=== PATIENT | female | born 1985 | race Caucasian/White ===

== ENCOUNTER 2020-07-24 11:42 | Outpatient (CLI) | payer BC ==
[~2020-07-24] VITALS: Ht 162.6 cm; Wt 71.8 kg
[2020-07-24 12:15] VITALS: BP 125/80; PULSE 77; TEMP 97.9
[2020-07-24] MEDS ORDERED: PRENATAL TABLET PO (12:23)
[2020-07-24] MEDS ORDERED: CALCIUM CARBON650 M2 (12:24)
[2020-07-24 12:32] LABS: BASO % 0.3 % (0.0-2.0); EOS % 0.3 % (0-4.0); GRAN # 8.4 (1.4-6.5); GRAN % 74.9 % (42.2-75.2); HEMATOCRIT 34.7 % (37.0-47.0); HEMOGLOBIN 11.5 g/dl (12.5-16.0); LYMPH % 17.9 % (20.0-51.0); MEAN CELL VOLUME 90 fl (80.0-100.0); MEAN CORPUSCULAR HEMOGLOBIN 30 pg (27.0-31.0); MEAN CORPUSCULAR HGB CONC 33 g/dl (33.0-37.0); MEAN PLATELET VOLUME 12.2 fl (7.4-10.4); MONO # 0.7 (0.1-0.6); MONO % 6.2 % (1.7-9.3); PLATELET COUNT 194 K/mm3 (130-400); RED BLOOD COUNT 3.86 M/mm3 (4.10-5.30); REDCELL DISTRIBUTION WIDTH-CV 12.3 % (11.5-14.5)
--- NOTE | 2020-07-24 13:00 | NUR ---
DR GARCIA IN TO VERIFY POSITION WITH ULTRASOUND. BABY IS IN VERTEX POSITION
--- NOTE | 2020-07-24 13:24 | NUR ---
PT ADMITTED TO LABOR AND DELIVERY WITH REPORTS SHE THINKS HER WATER BROKE AT 0630 THIS MORNING. HAS HAD CONTINUOUS LEAKING WITH PINK TINGED FLUID. FHT'S FOUND IN THE WITH MODERATE VARIABILITY AND ACCELS. PT REPORTS SHE HAS FELT CRAMPY FOR THE LAST SEVERAL DAYS. SVE WTIH POSITIVE AMNIOTRACE. DILATION /-2 WITH BLOODY SHOW. PHONED DR GARCIA AT 1207 WITH UPDATE ON THIS PT AND THAT SHE IS 32 WEEKS. ORDER RECEIVED TO GIVE BETAMETHASONE IM, START IV AND ANTIBIOTICS, AND PLAN FOR TRANSFER TO [facility]. PT INFORMED OF PLAN OF CARE. DR GARCIA HERE AT 1215 TO DISCUSS PLAN OF CARE WITH PT. ORDER RECEIVED TO START MAGNESIUM SULFATE. IV STARTED IN RIGHT WRIST AT 1210 BETAMETHASONE 12MG GIVEN IM AT 1219 IN LEFT GLUTEUS BY TERRA, PN STUDENT, WITH THIS RN OBSERVING. 1240-ATTEMPTED TO GET PT UP TO BATHROOM TO VOID AND THERE WAS A MODERATE AMOUNT OF BLOOD ON THE CHUX PAD. BACK TO BED. DR GARCIA IN AT 1245 TO ASSESS. SVE REMAINS UNCHANGED. PT TO NOT GET OUT OF BED ANYMORE. 1250-MAINLINE LR PLACED ON IV PUMP AND RUNNING AT 75ML/HR 1300-SECOND IV SITE STARTED IN LEFT WRIST BY THIS RN AND MAGNESIUM SULFATE STARTED AT 2MG/HR. CLINDAMYCIN 900MG INFUSING IN MAINLINE AT THIS TIME. PADDING PLACED ON SIDE RAILS. 1315-ADAIR PLACED BY TERRA, SAM STUDENT, WITH THIS RN IN ATTENDANCE. CLEAR, YELLOW URINE RETURNED.
[2020-07-24 13:30] VITALS: BP 134/69; PULSE 72
[2020-07-24 13:45] VITALS: BP 119/67; PULSE 80
--- NOTE | 2020-07-24 13:45 | NUR ---
CONTRACTIONS PICKING UP IRREGULARLY EVERY 1-2 MINUTES AND THEN IRRITABILITY RETURNS AND NO FURTHER CONTRACTIONS OBSERVED. PT DENIES FEELING ANY CONTRACTIONS.
--- NOTE | 2020-07-24 14:00 | NUR ---
1355 AZITHROMYCIN 1GM INFUSING PER PUMP. EMS HERE TO TRANSPORT PT TO [facility].
--- NOTE | 2020-07-24 14:05 | NUR ---
PT DISCHARGED WITH EMS.
--- NOTE | 2020-07-24 14:20 | NUR ---
REPORT CALLED TO LOLY BEATTY RN, AUSTEN.
== END 2020-07-24 14:05 | disposition short-term general hospital (02) ==
LOC: LDRO 11:42
PROVIDERS: Obstetrics & Gynecology
DX: O42.913 Preterm premature rupture of membranes, unspecified as to length of time between rupture and onset of labor, third trimester (principal); Z3A.32 32 weeks gestation of pregnancy
CPT/HCPCS: J0456; J0702; J3475; J7050; J7120

== ENCOUNTER → 2020-09-12 | Outpatient (CLI) | payer BC ==
[~2020-09-12] MED LIST: CALCIUM CARBON650 M2; PRENATAL TABLET PO
--- NOTE | 2020-09-12 17:14 | NUR ---
Pt, Lakshmi Rosenberg, presents for outpatient consult with 7 week old baby girl, Reema Rosenberg. She is accompanied by her spouse, Ze Rosenberg. Lakshmi desires a evaluation as Reema was born at 32 weeks gestation. [place] was born on [birth year] [place] [facility] [place] was discharged on 09/01/20 and weighed 5#12.9oz. She has been seen by Dr. Ray on 09/05/20 and weighed 5#14oz, and on 09/10/20 she weighed 6#1oz. Today she weighs 6#4.3oz. Feedings since discharge from the hospital are to be 2oz EBM with human milk fortifier every 3 hours. Pt reports struggling to get baby to complete her feedings, sometimes only getting 10ml, and then at other feedings she is able to handle the whole 2oz. She also reports the human milk fortifier makes Reema's nasal passages stuffy, causes her to spit up and choke with feedings. Pt reports she has had a decrease in milk supply, collecting 17oz per day at time of discharge, now she is collecting 11oz per day, and is only having time to pump 6 times per day. At this appointment we attempt to get Reema latched, she does not maintain a latch, so the nipple shield is placed. Reema has poor effort even with the nipple shield. After the attempt to breastfeed, Reema has a gain of 8gms, and she appears exhausted. Ze attempts to bottle feed Reema while Lakshmi pumps. Reema has very little effort with the bottle. ATUL attempts to bottle fed without success. provides Special Needs Feeding Bottle and demonstrates how to use it. Reema seems to get a little milk this way. Estimated intake by bottle is 20ml. Impression: Reema is still struggling with feeding consistency r/t delivery, decreased strength and stamina, and high arch palate. POC: Decrease attempts to BID when Reema has strong feeding cues. Pump and bottle fed q 3 hours. Continue 2oz Human Milk Fortified feeds q 3 hours, even if offering breast first. Increase pumpings to 8x per day. Use Special Needs Feeding bottle. F/U: As scheduled with Dr. Ray 09/17/20. Report weight to this LC, follow up with this LC will be scheduled as Reema demonstrates consistent weight gain. Questions invited and answered.
== END ==
LOC: LAC 15:14
DX: Z39.1 Encounter for care and examination of lactating mother (principal); Z71.89 Other specified counseling

== ENCOUNTER → 2020-10-23 | Outpatient (CLI) | payer BC ==
--- NOTE | 2020-10-23 13:42 | NUR ---
Pt, Lakshmi Rosenberg, presents for outpatient consult with 3 month (adjusted age 1 month) old baby, Reema Rosenberg for a evaluation. Pt would like assistance with teaching Reema to latch. Reema was born on [birth year] at 32 weeks gestation. Her original EDC was 09/17/20. weight [facility] 3#9oz at [facility]. This family was seen by this LC on 09/12/20. Reema has not been latching to the breast for feedings; current feed plan is bottle q 2-4 hours, 3oz of expressed breastmilk or formula per feeding. Pt states at Reema's last appt at Dr. Ray's she weighed 7.1# (10/09/20). Today Reema weighs 7#15 (3602 gms). Pt works with Reema at the breast, she initially seems to take the nipple but does not successful create a latch. LC assists but Reema does not hold onto the breast with her tongue. Pt attempts latching with the nipple shield as well. After attempting to latch for ~20 minutes, Reema does not have any weight gain. She is fed ~3oz by bottle. Pt pumps, collecting about 3oz. POC: Continue pumping and bottle feeding. Pt will consider how long she wants to consider pumping. F/U: As scheduled with Dr. Ray. Questions invited and answered.
== END ==
LOC: LAC 12:59
DX: Z39.1 Encounter for care and examination of lactating mother (principal); Z71.89 Other specified counseling

== ENCOUNTER 2023-09-15 10:00 | Inpatient (IN) | payer BC ==
[~2023-09-15] VITALS: Ht 160.1 cm; Wt 71.8 kg
[2023-09-15] VITALS (16 sets, daily range): BP systolic 102–147; BP diastolic 65–85; PULSE 61–92; TEMP 98–98.1
--- NOTE | 2023-09-15 09:50 | NUR ---
PT AMBULATES ONTO THE UNIT WITH SPOUSE FOR A LABOR CHECK.PT REPORTS CONSISTENT CONTRACTIONS SINCE 0530AM. PT REPORTS POSITIVE MOVEMENT.PT DENIES LOF/VB. EFM AND TOCO APPLIED AND TRACING CATEGORY 1. POC REVIEWED WITH PT.PT VERBALIZES UNDERSTANDING.
[2023-09-15] MEDS ORDERED: LR 1,000 ML IV SCH (10:15)
[2023-09-15] MEDS ORDERED: LR & Oxytocin 500 ML IV SCH (10:15)
[2023-09-15 10:44] LABS: BASO % 0.3 % (0.0-2.0); EOS % 0.3 % (0.0-4.0); GRAN # 7.7 K/mm3 (1.4-6.5); GRAN % 64.5 % (42.2-75.2); HEMATOCRIT 38.3 % (37.0-47.0); HEMOGLOBIN 12.8 g/dl (12.5-16.0); LYMPH # 3.4 K/mm3 (1.2-3.4); LYMPH % 28.6 % (20.0-51.0); MEAN CELL VOLUME 90 fl (80.0-100.0); MEAN CORPUSCULAR HEMOGLOBIN 30 pg (27-31); MEAN CORPUSCULAR HGB CONC 33 g/dl (33.0-37.0); MEAN PLATELET VOLUME 12.2 fl (7.4-10.4); MONO # 0.7 K/mm3 (0.1-0.6); MONO % 5.9 % (1.7-9.3); PLATELET COUNT 192 K/mm3 (130-400); RED BLOOD COUNT 4.26 M/mm3 (4.10-5.30); REDCELL DISTRIBUTION WIDTH-CV 13.1 % (11.5-14.5)
--- NOTE | 2023-09-15 10:44 | NUR ---
Pt requests to get in shower for management of UC pain. EFM and TOCO off. Precautions given, Pt verbalizes understanding. Pt assisted into shower. This RN remains at Pt's side. At approx 1057 Pt reports "feel like pushing" with UC. Pt asssisted out of shower and into bed.
--- NOTE | 2023-09-15 10:51 | NUR ---
0950 PATIENT HERE FROM HOME WITH COMPLAINTS OF CONTRACTIONS SINCE 0530 AND GETTING INTENSE. EFM ON FHT 130 BABY VERY ACTIVE. CONTRACTIONS EVERY 2-3 MIN PALPATE STRONG. SVE 6/100/-[address] JACOBSEN CALLED WITH ALL ABOVE INFORMATION AND ORDERS TO ADMIT. FULL ASSESSMENT COMPLETED AT THIS TIME. 1010 IV STARTED IN LEFT ARM HEPLOCKED WITH LABS.
--- NOTE | 2023-09-15 10:59 | NUR ---
1045 REPORT GIVEN TO ERICA ZABALA RN TO ASSUME CARE OF PATIENT AT THIS TIME.
--- NOTE | 2023-09-15 11:20 | NUR ---
1120- Dr Alamo at bedside. BARBARA amniohoabundio provided, reports SROM with exam, thick meconeum fluid noted, MD assesses presentation and suspects breech. Bedside US obtained and comfirmed breech presentation. discussed need for primary section. Pt agrees with plan. Cora, gas fitter helper called to bedside. Pt prepped for section delivery. 1132- Pt transfered to OR via bed.
[2023-09-15] MEDS ORDERED: Ondansetron 4 MG/2 ML VIAL ONE (11:37)
[2023-09-15] MEDS ORDERED: dexAMETHasone 10 MG/ML VIAL ONE (11:37)
[2023-09-15] MEDS ORDERED: Ketorolac 30 MG/ML VIAL ONE (11:37)
[2023-09-15] MEDS ORDERED: Gentamicin/Sodium Chloride 100 ML IV ONE (11:37)
[2023-09-15] MEDS ORDERED: LR 1,000 ML IV ONE (11:49)
[2023-09-15] MEDS ORDERED: ePHEDrine 50 MG/ML VIAL ONE (12:39)
[2023-09-15] MEDS ORDERED: Magnes Hydrox (MOM) 80 MG/ML 30 ML CUP PO PRN (12:45)
[2023-09-15] MEDS ORDERED: Loratadine 10 MG TAB PO PRN (12:45)
[2023-09-15] MEDS ORDERED: Morphine 4 MG/ML VIAL IV PRN (14:15)
[2023-09-15] MEDS ORDERED: Naloxone 0.4 MG/ML VIAL IV PRN (14:15)
[2023-09-15] MEDS ORDERED: oxyCODONE/Acetaminophen 5-325 MG TAB PO PRN (14:15)
[2023-09-15] MEDS ORDERED: LR 1,000 ML IV PRN (14:15)
[2023-09-15] MEDS ORDERED: Measles/Mumps/Rubella Virus Vaccine Live w Diluent 0.5 ML VIAL SQ SCH (14:15)
[2023-09-15] MEDS ORDERED: Ondansetron 4 MG/2 ML VIAL IV PRN (14:15)
[2023-09-15] MEDS ORDERED: Sennosides/Docusate 8.6-50 MG TAB PO SCH (17:00)
[2023-09-15] MEDS ORDERED: Ibuprofen 800 MG TAB PO SCH (18:44)
[2023-09-15] MEDS ORDERED: traZODone 50 MG TAB PO PRN (21:00)
[2023-09-16 00:45] VITALS: BP 124/71; PULSE 78; TEMP 98
[2023-09-16 03:45] VITALS: BP 106/65; PULSE 84; TEMP 97.6
[2023-09-16 07:54] VITALS: BP 105/65; PULSE 88; TEMP 98
--- NOTE | 2023-09-16 09:56 | NUR ---
Initial visit attempt; Patient sleeping. Terrazzo Layer Helper left card offering congratulations and God's blessings for the of their daughter. Terrazzo Layer Helper thanked family for choosing [facility].
[2023-09-16 12:00] VITALS: BP 104/64; PULSE 83; TEMP 98
[2023-09-16 20:50] VITALS: BP 105/50; PULSE 106; TEMP 98.4
[2023-09-17 07:40] VITALS: BP 111/63; PULSE 79; TEMP 97.7
[2023-09-17] MEDS ORDERED: MOTRIN 800800 MG/TAB PO (11:10)
== END 2023-09-17 12:55 | disposition home or self-care (01) | DRG 788 ==
LOC: LDR 10:00 → OB 16:23
PROVIDERS: ADMIT Obstetrics & Gynecology
PROC: 10D00Z1 Extraction of Products of Conception, Low, Open Approach (ICD-10-PCS; principal; 2023-09-15)
DX: O32.1XX0 Maternal care for breech presentation, not applicable or unspecified (principal); Z3A.39 39 weeks gestation of pregnancy; Z37.0 Single live birth; O77.0 Labor and delivery complicated by meconium in amniotic fluid
CPT/HCPCS: J0665; J0737; J1100; J1580; J1885; J2405; J7120